=== PATIENT | male | born 1980 | race Caucasian/White ===

== ENCOUNTER 2019-06-21 15:07 | Emergency (ER) | payer OTHER ==
[~2019-06-21] VITALS: Ht 188 cm; Wt 72.6 kg
[~2019-06-21 15:07] MED LIST: CLIN300 PO; HYDACE5 PO; OXYACE5T PO; PENVK500 PO; RXCLIN PO; TRAM50 PO
== END 2019-06-21 15:34 | disposition home or self-care (01) ==
LOC: ER 15:07
DX: S30.810A Abrasion of lower back and pelvis, initial encounter (principal); V89.2XXA Person injured in unspecified motor-vehicle accident, traffic, initial encounter
CPT/HCPCS: 99284